=== PATIENT | male | born 1990 | race African-American/Black ===

== ENCOUNTER 2024-11-10 20:41 | Emergency (ER) | payer OTHER, SELFPAY ==
[2024-11-11 00:11] LABS: BLOOD UREA NITROGEN 11 MG/DL (9-23); CALCIUM LEVEL 9.1 MG/DL (8.5-10.1); CARBON DIOXIDE LEVEL 27 MMOL/L (20-31); CHLORIDE LEVEL 102 MMOL/L (98-107); CREATININE FOR GFR 1.22 MG/DL (0.70-1.30); GLOMERULAR FILTRATION RATE > 60.0 (>60); GLUCOSE, FASTING 90 MG/DL (60-100); POTASSIUM SERUM 3.8 MMOL/L (3.5-5.1); SODIUM LEVEL 137 MMOL/L (136-145)
[2024-11-11] MEDS: ONDANSETRON 4MG 2ML VIAL IV ONE (00:16)
[2024-11-11] MEDS: ACETAMINOPHEN *IV* 1,000 MG in IV 1 EA IV ONE (00:17)
[2024-11-11] MEDS: NS (Normal Saline) 0.9% 1,000 ML IV ONE (00:17)
[2024-11-11 00:27] LABS: C REACTIVE PROTEIN QUANTITATIV 1.04 MG/DL (<1.0)
[2024-11-11 00:34] LABS: HEMATOCRIT 38.3 % (42.0-52.0); HEMOGLOBIN 12.8 g/dl (13.5-17.5); MEAN CORPUSCULAR HEMOGLOBIN 27.9 pg (27.0-33.0); MEAN CORPUSCULAR HGB CONC 33.4 g/dl (32.0-36.5); MEAN CORPUSCULAR VOLUME 83.6 fl (80.0-96.0); PLATELET COUNT, AUTOMATED 145 10^3/uL (150-450); RED BLOOD COUNT 4.58 10^6/uL (4.30-6.10); WHITE BLOOD COUNT 5.1 10^3/uL (4.0-10.0)
[2024-11-11 00:46] LABS: KETONE, URINE AUTO RFX NEGATIVE (NEGATIVE); LEUKOCYTE ESTERASE UR AUTO RFX NEGATIVE (NEGATIVE); NITRITE, URINE AUTO RFX NEGATIVE (NEGATIVE); RBC, URINE AUTO RFX 0 /HPF (0-3); SQUAM EPITHELIAL CELL UR AURFX 0 /HPF (0-6); WBC, URINE AUTO RFX 0 /HPF (0-3)
[2024-11-11 00:53] LABS: ERYTHROCYTE SEDIMENTATION RATE 6 mm/hr (0-15)
[2024-11-11 01:23] LABS: MONO SCRN NEGATIVE (NEGATIVE)
[2024-11-11 03:01] LABS: ALBUMIN 3.9 G/DL (3.2-5.2); ALKALINE PHOSPHATASE 88 U/L (40-129); ALT/SGPT 40 U/L (7.0-40); AST/SGOT 28 U/L (<34); BILIRUBIN,DIRECT 0.2 MG/DL (<0.4); BILIRUBIN,TOTAL 0.6 MG/DL (0.3-1.2); TOTAL PROTEIN 7.1 G/DL (5.7-8.2)
[2024-11-11] MEDS ORDERED: ONDA-282 PO (03:37)
[2024-11-11] MEDS: ONDANSETRON 4MG ORAL DISINTEGRATING TAB PO ONE (04:16)
[2024-11-11 04:18] VITALS: BP 103/58; TEMP 99; O2SAT 98
== END 2024-11-11 04:25 | disposition home or self-care (01) ==
LOC: M ED 20:41
DX: K29.70 Gastritis, unspecified, without bleeding (principal); B34.9 Viral infection, unspecified
CPT/HCPCS: 36415; 71046; 80048; 80076; 81001; 83605; 85027; 85652; 86140; 86308; 87040; 87486; 87581; 87633; 87798; 87880; 96365; 96375; 99285; J0131; J2405

== ENCOUNTER 2024-11-19 16:10 | Emergency (ER) | payer OTHER ==
[~2024-11-19] VITALS: Ht 185.4 cm; Wt 84.6 kg
[~2024-11-19 16:10] MED LIST: ONDA-282 PO
[2024-11-19 16:16] VITALS: TEMP 97.9
[2024-11-19] MEDS ORDERED: IBUP1TAB7 PO (16:20)
[2024-11-19] MEDS: methocarbamoL 750 MG TAB PO ONE (19:46)
[2024-11-19] MEDS: ACETAMINOPHEN 500 MG TAB PO ONE (19:47)
[2024-11-19] MEDS: KETOROLAC 60MG 2ML VIAL IM ONE (19:47)
[2024-11-19] MEDS ORDERED: METH-1164 PO (20:28)
[2024-11-19 20:33] VITALS: BP 123/71; O2SAT 100
== END 2024-11-19 20:35 | disposition home or self-care (01) ==
LOC: M ED 16:10
DX: M62.830 Muscle spasm of back (principal); Z79.1 Long term (current) use of non-steroidal anti-inflammatories (NSAID); Z79.899 Other long term (current) drug therapy
CPT/HCPCS: 96372; 99283; J1885

== ENCOUNTER 2024-12-01 20:04 | Emergency (ER) | payer OTHER ==
[~2024-12-01] VITALS: Ht 190.5 cm; Wt 96.2 kg
[~2024-12-01 20:04] MED LIST changes: +IBUP1TAB7 PO; +METH-1164 PO
[2024-12-01] MEDS: FLUORESCEIN OPHTH 1MG STRIP OU ONE (21:09)
[2024-12-01] MEDS: PROPARACAINE 0.5% OPHTH SOL 15ML OU ONE (21:09)
[2024-12-01] MEDS: FAMOTIDINE 20 MG TAB PO ONE (21:09)
[2024-12-01] MEDS ORDERED: ERYT5OIN25 OP (22:03)
[2024-12-01] MEDS: ERYTHROMYCIN OPHTH OINT OU ONE (22:13)
[2024-12-02 00:06] VITALS: BP 125/74; TEMP 97.3; O2SAT 100
== END 2024-12-02 00:07 | disposition home or self-care (01) ==
LOC: M ED 20:04
DX: H18.893 Other specified disorders of cornea, bilateral (principal); Z79.1 Long term (current) use of non-steroidal anti-inflammatories (NSAID); Z79.2 Long term (current) use of antibiotics; Z79.899 Other long term (current) drug therapy

== ENCOUNTER 2025-02-07 16:42 | Emergency (ER) | payer OTHER ==
[~2025-02-07] VITALS: Ht 188 cm; Wt 84.6 kg
[~2025-02-07 16:42] MED LIST changes: +ERYT5OIN25 OP; +MEDR4PAK PO; +METH-1165 PO
[2025-02-07] MEDS: KETOROLAC 60 MG/2 ML VIAL IM ONE (20:50)
[2025-02-07] MEDS: methocarbamoL 500 MG TAB PO ONE (20:53)
[2025-02-07] MEDS: HYDROCODONE/ACETAMINOPHEN 5/325 MG TABLET PO ONE (21:45)
[2025-02-08] MEDS ORDERED: VALI5TAB PO (01:38)
[2025-02-08 01:46] VITALS: BP 122/65; TEMP 97.8; O2SAT 99
[2025-03-05] MEDS ORDERED: CELE0.09 PO (02:24)
[2025-03-05] MEDS ORDERED: GABA-1171 PO (02:24)
[2025-03-05] MEDS ORDERED: AMOX875T2 PO (11:04)
[2025-03-05] MEDS ORDERED: OMEP40CA4 PO (12:04)
[2025-03-05] MEDS ORDERED: AMOX500C PO (12:04)
== END 2025-02-08 01:45 | disposition home or self-care (01) ==
LOC: M ED 16:42
DX: M47.816 Spondylosis without myelopathy or radiculopathy, lumbar region (principal); Z79.899 Other long term (current) drug therapy
CPT/HCPCS: 72148; 96372; 99284; J1885

== ENCOUNTER → 2025-06-19 | Outpatient (REF) ==
[~2025-06-19] MED LIST changes: +AMOX500C PO; +AMOX875T2 PO; +CELE0.09 PO; +GABA-1171 PO; +OMEP40CA4 PO; +VALI5TAB PO
== END ==
LOC: M PLAIMG 08:39
PROVIDERS: ATTEND Internal Medicine
DX: M54.50 Low back pain, unspecified (principal)